=== PATIENT | female | born 1995 | race Caucasian/White ===

== ENCOUNTER 2021-10-23 22:16 | Emergency (ER) | payer OTHER ==
[~2021-10-23] VITALS: Ht 160 cm; Wt 81.6 kg
[2021-10-23 22:20] VITALS: BP 141/76
--- NOTE | 2021-10-23 22:20 | NUR ---
TO BED AMBULATORY
[2021-10-23] MEDS ORDERED: NACL 0.9% 1,000 ML IV SCH (22:50)
[2021-10-23] MEDS ORDERED: KETOROLAC 30 MG/ML VIAL IVP ONE (22:50)
--- NOTE | 2021-10-23 23:25 | NUR ---
25 Y/O FEMALE BIB SELF WITH C/O INTENSE ABDOMINAL PAIN AND BACK PAIN THAT STARTED A COUPLE HOURS AGO. SHE STATES THE STOMACH PAIN IS INTERMITTENT AND FEELS LIKE GAS. THE BACK PAIN IS CONSTANT AND THROBBING. PT HAS A VERY SLIGHT BURN DURING URINATION. PT HAS NKA. MEDS:NONE HX: SURGERY TO REMAIN OVARIAN CYST IN RT OVARY, , IUD
[2021-10-23 23:26] LABS: BASOPHILS % (AUTO) 0.3 % (0.0-2.0); EOSINOPHILS # (AUTO) 0.1 K/uL (0-0.4); EOSINOPHILS % (AUTO) 0.7 % (0.0-4.0); HEMATOCRIT 38.3 % (36-48); LYMPHOCYTES # (AUTO) 3.4 K/uL (2.5-16.5); LYMPHOCYTES % (AUTO) 24.9 % (20.5-51.1); MEAN CORPUSCULAR HEMOGLOBIN 30 pg (27-31); MEAN CORPUSCULAR HGB CONC 34 g/dL (33-37); MEAN CORPUSCULAR VOLUME 87.3 fL (80-94); MONOCYTES # (AUTO) 0.6 K/uL (0.8-1.0); MONOCYTES % (AUTO) 4.3 % (1.7-9.3); NEUTROPHILS # (AUTO) 9.5 K/uL (1.8-7.7); NEUTROPHILS % (AUTO) 69.8 % (42.2-75.2); PLATELET COUNT (AUTO) 335 K/uL (140-450); RED BLOOD CELL COUNT(AUTO) 4.39 MIL/uL (4.20-5.40); WHITE BLOOD COUNT (AUTO) 13.6 K/uL (4.8-10.8)
--- NOTE | 2021-10-23 23:28 | NUR ---
PT RETURNED FROM CT VIA W/C
[2021-10-23 23:38] LABS: APPEARANCE,URINE CLEAR (CLEAR); BILIRUBIN,URINE NEGATIVE (NEGATIVE); BLOOD, URINE 1+ (NEGATIVE); COLOR,URINE YELLOW (YELLOW); LEUKOCYTE ESTERASE ,URINE NEGATIVE (NEGATIVE); NITRITE, URINE NEGATIVE (NEGATIVE); UGLUCOSE NEGATIVE (NEGATIVE)
[2021-10-23 23:51] LABS: RBC,URINE 0-5 /HPF (0-5); WBC,URINE 0-5 /HPF (0-5)
[2021-10-23 23:53] LABS: ALBUMIN 3.7 g/dL (3.4-5.0); ANION GAP 16.9 (8-16); CARBON DIOXIDE 23.9 mmol/L (21-32); CREATININE 0.8 mg/dL (0.6-1.3); POTASSIUM 3.8 mmol/L (3.5-5.1); TOTAL BILIRUBIN 0.2 mg/dL (0.0-1.0)
--- NOTE | 2021-10-24 00:54 | NUR ---
PT AMBULATED TO RESTROOM, STEADY GAIT OBSERVED.
[2021-10-24] MEDS ORDERED: cefTRIAXone 1,000 MG VIAL ONE (02:30)
[2021-10-24] MEDS ORDERED: NAPR-54 PO (02:48)
[2021-10-24] MEDS ORDERED: NITR100C7 PO (02:48)
[2021-10-24 03:06] VITALS: BP 126/78
--- NOTE | 2021-10-24 03:17 | NUR ---
Patient discharged with v/s stable. Written and verbal after care instructions given and explained. Patient alert, oriented and verbalized understanding of instructions. Ambulatory with steady gait. All questions addressed prior to discharge. ID band removed. Patient advised to follow up with PMD. Rx of NAPROXEN/ M-CRYST given. Opportunity to ask questions provided and answered.
--- NOTE | 2021-10-24 03:58 | NUR ---
The patient's care was reviewed and supervised by Maria Ines Yun RN.
== END 2021-10-24 03:05 | disposition home or self-care (01) ==
LOC: MED 22:16
DX: N39.0 Urinary tract infection, site not specified (principal)
CPT/HCPCS: 36415; 74176; 80053; 81001; 81025; 85025; 87086; 96361; 96365; 96375; 99284; J0696; J1885; J7030